=== PATIENT | male | born 1945 | race Caucasian/White ===

== ENCOUNTER → 2017-10-03 | Outpatient (REF) | payer BC | LOC: M LAB REF 17:14 | DX: L02.33 Carbuncle of buttock (principal) | CPT/HCPCS: 87186 ==

== ENCOUNTER → 2018-01-14 | Outpatient (REF) | payer BC | LOC: M WUC 12:15 | DX: L02.212 Cutaneous abscess of back [any part, except buttock and flank] (principal) ==

== ENCOUNTER 2021-05-11 10:15 | Emergency (ER) | payer BC, MEDICARE ==
[~2021-05-11] VITALS: Ht 172.7 cm; Wt 68.5 kg
[2021-05-11] MEDS: METOPROLOL 5 MG/5 ML VIAL IV SCH ×3 (10:40→11:07)
[2021-05-11 11:00] LABS: BASO % 0.4 % (0.0-1.0); EOS % 0.1 % (0.0-3.0); HEMATOCRIT 38.2 % (42.0-52.0); HEMOGLOBIN 12.7 g/dl (13.5-17.5); LYMPH % 13.5 % (24.0-44.0); MEAN CORPUSCULAR HGB CONC 33.2 g/dl (32.0-36.5); MEAN CORPUSCULAR VOLUME 96.2 fl (80.0-96.0); MONO # 0.6 10^3/uL (0.0-0.8); NEUTROPHILS # 5.8 10^3/uL (1.5-8.5); NEUTROPHILS % 77.6 % (36.0-66.0); PLATELET COUNT, AUTOMATED 246 10^3/uL (150-450); RED BLOOD COUNT 3.97 10^6/uL (4.30-6.10); WHITE BLOOD COUNT 7.5 10^3/uL (4.0-10.0)
[2021-05-11 11:07] VITALS: BP 110/77
[2021-05-11 11:10] LABS: INR 1.03; PROTHROMBIN TIME 13.9 SECONDS (12.7-14.5)
[2021-05-11 11:11] LABS: PARTIAL THROMBOPLASTIN TIME 27.2 SECONDS (25.9-37.0)
[2021-05-11] MEDS ORDERED: METOPROLOL TART 25 MG TABLET PO STA (11:11)
[2021-05-11 11:36] LABS: ALBUMIN 3.5 GM/DL (3.2-5.2); ALT/SGPT 97 U/L (12-78); BILIRUBIN,DIRECT 0.2 MG/DL (0.0-0.2); BILIRUBIN,TOTAL 0.6 MG/DL (0.2-1.0); BLOOD UREA NITROGEN 38 MG/DL (7-18); CALCIUM LEVEL 9.7 MG/DL (8.8-10.2); CARBON DIOXIDE LEVEL 23 MEQ/L (21-32); CHLORIDE LEVEL 112 MEQ/L (98-107); GLOMERULAR FILTRATION RATE > 60.0 (>42); GLUCOSE, FASTING 101 MG/DL (70-100); LIPASE 54 U/L (73-393); NT-PRO BNP 5683 PG/ML (<450); POTASSIUM SERUM 4.5 MEQ/L (3.5-5.1); SODIUM LEVEL 146 MEQ/L (136-145); TOTAL PROTEIN 6.4 GM/DL (6.4-8.2)
[2021-05-11 11:42] LABS: CK-MB VALUE MASS 11.8 NG/ML (<3.6); MB/CK RELATIVE INDEX 3.52 (< OR =4)
[2021-05-11 12:56] LABS: CK-MB VALUE MASS 10.8 NG/ML (<3.6); MB/CK RELATIVE INDEX 3.75 (< OR =4)
[2021-05-11 13:30] VITALS: BP 118/81
[2021-05-11] MEDS ORDERED: CORE6.25 PO (13:59)
[2021-05-11] MEDS ORDERED: ELIQ5TAB PO (13:59)
== END 2021-05-11 15:09 | disposition home or self-care (01) ==
LOC: M ED 10:15
DX: I48.91 Unspecified atrial fibrillation (principal); R77.8 Other specified abnormalities of plasma proteins; I44.7 Left bundle-branch block, unspecified; Z79.01 Long term (current) use of anticoagulants

== ENCOUNTER 2021-05-13 13:15 | Inpatient (IN) | payer BC, MEDICARE ==
[~2021-05-13] VITALS: Ht 167.6 cm; Wt 69.2 kg
[~2021-05-13 13:15] MED LIST: CORE6.25 PO; ELIQ5TAB PO
[2021-05-13] MEDS ORDERED: FUROSEMIDE 20MG/2ML VIAL (J1940) IV ONE (13:55)
[2021-05-13 14:18] LABS: BASO % 0.4 % (0.0-1.0); EOS # 0.1 10^3/uL (0.0-0.5); HEMATOCRIT 38.9 % (42.0-52.0); HEMOGLOBIN 12.7 g/dl (13.5-17.5); LYMPH # 1.2 10^3/uL (1.5-5.0); LYMPH % 16.5 % (24.0-44.0); MEAN CORPUSCULAR HEMOGLOBIN 32.1 pg (27.0-33.0); MEAN CORPUSCULAR HGB CONC 32.6 g/dl (32.0-36.5); MEAN CORPUSCULAR VOLUME 98.2 fl (80.0-96.0); MONO # 0.6 10^3/uL (0.0-0.8); MONO % 8.6 % (2.0-8.0); NEUTROPHILS # 5.2 10^3/uL (1.5-8.5); NEUTROPHILS % 73.2 % (36.0-66.0); PLATELET COUNT, AUTOMATED 279 10^3/uL (150-450); RED BLOOD COUNT 3.96 10^6/uL (4.30-6.10); WHITE BLOOD COUNT 7.1 10^3/uL (4.0-10.0)
[2021-05-13 14:28] LABS: INR 1.23; PROTHROMBIN TIME 15.9 SECONDS (12.7-14.5)
[2021-05-13 14:29] LABS: PARTIAL THROMBOPLASTIN TIME 34.8 SECONDS (25.9-37.0)
[2021-05-13 14:49] LABS: MB/CK RELATIVE INDEX 5.75 (< OR =4)
[2021-05-13 14:57] LABS: RSV AMPLIFICATION NEGATIVE (NEGATIVE)
[2021-05-13 14:57] LABS: ALBUMIN 3.3 GM/DL (3.2-5.2); BILIRUBIN,DIRECT 0.1 MG/DL (0.0-0.2); BILIRUBIN,TOTAL 0.4 MG/DL (0.2-1.0); CALCIUM LEVEL 9.3 MG/DL (8.8-10.2); CREATININE FOR GFR 1.39 MG/DL (0.70-1.30); GLOMERULAR FILTRATION RATE 52.7 (>42); POTASSIUM SERUM 4.5 MEQ/L (3.5-5.1); THYROID STIMULATING HORMONE 39.5 uIU/ML (0.358-3.740); TOTAL PROTEIN 6.2 GM/DL (6.4-8.2)
[2021-05-13 16:09] LABS: CK-MB VALUE MASS 37.1 NG/ML (<3.6); MB/CK RELATIVE INDEX 5.89 (< OR =4)
[2021-05-13] MEDS ORDERED: VITA-158 PO (16:11)
[2021-05-13] MEDS ORDERED: CYAN100049 PO (16:11)
[2021-05-13] MEDS ORDERED: D31000TA2 PO (16:11)
[2021-05-13] MEDS ORDERED: HOME MED LIST COMPLETE! XX SCH (16:15)
[2021-05-13] MEDS: CARVedilol 12.5 MG TAB PO SCH (18:48)
[2021-05-13] MEDS: APIXABAN 5 MG TAB (ELIQUIS) PO SCH (21:32)
[2021-05-14] MEDS: LEVOTHYROXINE 25MCG TABLET (0.025MG) PO SCH (06:00)
[2021-05-14 07:27] LABS: BASO % 0.7 % (0.0-1.0); EOS # 0.1 10^3/uL (0.0-0.5); EOS % 2.1 % (0.0-3.0); HEMOGLOBIN 12.7 g/dl (13.5-17.5); LYMPH # 1.2 10^3/uL (1.5-5.0); LYMPH % 20.8 % (24.0-44.0); MEAN CORPUSCULAR HEMOGLOBIN 32.2 pg (27.0-33.0); MEAN CORPUSCULAR HGB CONC 32.6 g/dl (32.0-36.5); MONO # 0.5 10^3/uL (0.0-0.8); MONO % 9.5 % (2.0-8.0); NEUTROPHILS # 3.7 10^3/uL (1.5-8.5); NEUTROPHILS % 66.5 % (36.0-66.0); PLATELET COUNT, AUTOMATED 258 10^3/uL (150-450); RED BLOOD COUNT 3.94 10^6/uL (4.30-6.10); WHITE BLOOD COUNT 5.6 10^3/uL (4.0-10.0)
[2021-05-14 08:01] LABS: BLOOD UREA NITROGEN 48 MG/DL (7-18); CALCIUM LEVEL 8.9 MG/DL (8.8-10.2); CARBON DIOXIDE LEVEL 26 MEQ/L (21-32); CHLORIDE LEVEL 113 MEQ/L (98-107); FREE T3 1.7 PG/ML (2.2-4.0); FREE T4 0.95 NG/DL (0.76-1.46); GLOMERULAR FILTRATION RATE > 60.0 (>42); GLUCOSE, FASTING 84 MG/DL (70-100); MAGNESIUM LEVEL 2.2 MG/DL (1.8-2.4); POTASSIUM SERUM 4.3 MEQ/L (3.5-5.1); SODIUM LEVEL 147 MEQ/L (136-145)
[2021-05-14] MEDS: CARVedilol 12.5 MG TAB PO SCH ×2 (08:45→20:25)
[2021-05-14] MEDS: CYANOCOBALAMIN 500 MCG TAB PO SCH (08:45)
[2021-05-14] MEDS: VITAMIN D 1,000 INTERNATIONAL UNITS TABLET PO SCH (08:45)
[2021-05-14] MEDS: ASCORBIC ACID 500 MG TAB PO SCH (08:45)
[2021-05-14] MEDS: APIXABAN 5 MG TAB (ELIQUIS) PO SCH ×2 (08:45→20:25)
[2021-05-14] MEDS ORDERED: FUROSEMIDE 40MG/4ML VIAL (J1940) IV SCH (09:00)
[2021-05-14 13:04] VITALS: BP 110/70
[2021-05-14] MEDS: FUROSEMIDE 20MG/2ML VIAL (J1940) IV SCH (17:58)
[2021-05-14 17:59] VITALS: BP 123/78
[2021-05-14] MEDS ORDERED: SENNA 8.6 MG TAB (SENOKOT) PO PRN (19:30)
[2021-05-14] MEDS ORDERED: MIRALAX *UNIT DOSE* 17GM PACKET PO PRN (19:30)
[2021-05-14] MEDS ORDERED: MOM 30ML SUSPENSION UDC PO PRN (19:30)
[2021-05-14 20:00] VITALS: BP 110/74
[2021-05-14 20:25] VITALS: BP 112/74
[2021-05-14] MEDS: ENTRESTO 24-26MG TABLET (SACUBITRIL/VALSARTAN) PO SCH (20:25)
[2021-05-15] VITALS: BP 100/67
[2021-05-15 04:00] VITALS: BP 106/59
[2021-05-15] MEDS: LEVOTHYROXINE 25MCG TABLET (0.025MG) PO SCH (05:08)
[2021-05-15 06:11] LABS: BASO # 0.1 10^3/uL (0.0-0.2); BASO % 0.9 % (0.0-1.0); EOS # 0.1 10^3/uL (0.0-0.5); EOS % 2.4 % (0.0-3.0); HEMATOCRIT 42.4 % (42.0-52.0); HEMOGLOBIN 13.7 g/dl (13.5-17.5); LYMPH # 1.4 10^3/uL (1.5-5.0); LYMPH % 23.9 % (24.0-44.0); MEAN CORPUSCULAR HEMOGLOBIN 32.1 pg (27.0-33.0); MEAN CORPUSCULAR HGB CONC 32.3 g/dl (32.0-36.5); MEAN CORPUSCULAR VOLUME 99.3 fl (80.0-96.0); MONO # 0.6 10^3/uL (0.0-0.8); MONO % 9.6 % (2.0-8.0); NEUTROPHILS # 3.6 10^3/uL (1.5-8.5); NEUTROPHILS % 62.9 % (36.0-66.0); PLATELET COUNT, AUTOMATED 295 10^3/uL (150-450); RED BLOOD COUNT 4.27 10^6/uL (4.30-6.10); WHITE BLOOD COUNT 5.7 10^3/uL (4.0-10.0)
[2021-05-15 06:31] LABS: BLOOD UREA NITROGEN 43 MG/DL (7-18); CALCIUM LEVEL 8.5 MG/DL (8.8-10.2); CARBON DIOXIDE LEVEL 27 MEQ/L (21-32); CHLORIDE LEVEL 111 MEQ/L (98-107); CREATININE FOR GFR 1.05 MG/DL (0.70-1.30); GLOMERULAR FILTRATION RATE > 60.0 (>42); GLUCOSE, FASTING 92 MG/DL (70-100); MAGNESIUM LEVEL 2.1 MG/DL (1.8-2.4); SODIUM LEVEL 145 MEQ/L (136-145)
[2021-05-15 07:32] VITALS: BP 105/69
[2021-05-15] MEDS ORDERED: ENTR1TAB PO (07:46)
[2021-05-15] MEDS: ASCORBIC ACID 500 MG TAB PO SCH (08:14)
[2021-05-15] MEDS: VITAMIN D 1,000 INTERNATIONAL UNITS TABLET PO SCH (08:14)
[2021-05-15] MEDS: CYANOCOBALAMIN 500 MCG TAB PO SCH (08:14)
[2021-05-15] MEDS: APIXABAN 5 MG TAB (ELIQUIS) PO SCH (08:14)
[2021-05-15] MEDS: ENTRESTO 24-26MG TABLET (SACUBITRIL/VALSARTAN) PO SCH (08:14)
[2021-05-15] MEDS: FUROSEMIDE 20MG/2ML VIAL (J1940) IV SCH (08:15)
[2021-05-15] MEDS: CARVedilol 12.5 MG TAB PO SCH (08:15)
[2021-05-15] MEDS ORDERED: SPIRONOLACTONE 12.5MG PER 1/2 TABLET PO SCH (09:00)
[2021-05-15 12:30] VITALS: BP 98/65
[2021-05-15] MEDS ORDERED: LASI20TA3 PO (15:01)
[2021-05-15] MEDS ORDERED: ALDA25TA2 PO (15:01)
[2021-05-15] MEDS ORDERED: CARV12.5 PO (15:01)
[2021-05-15] MEDS ORDERED: LEVO25TA5 PO (15:59)
== END 2021-05-15 16:20 | disposition home or self-care (01) | DRG 292 ==
LOC: M ED 13:15 → M ED INP 16:53 → ENRESERV 05-14 11:46 → M PCU 05-14 13:04
PROVIDERS: ADMIT Internal Medicine Nephrology; ATTEND Internal Medicine Nephrology
DX: I50.41 Acute combined systolic (congestive) and diastolic (congestive) heart failure (principal); N17.9 Acute kidney failure, unspecified; J90 Pleural effusion, not elsewhere classified; I48.91 Unspecified atrial fibrillation; Z79.01 Long term (current) use of anticoagulants; Z20.822 Contact with and (suspected) exposure to COVID-19; Z79.899 Other long term (current) drug therapy; I27.20 Pulmonary hypertension, unspecified; I50.810 Right heart failure, unspecified; E03.9 Hypothyroidism, unspecified

== ENCOUNTER → 2021-09-14 | Outpatient (REF) | payer MEDICARE ==
[~2021-09-14] MED LIST changes: +ALDA25TA2 PO; +CARV12.5 PO; +CYAN100049 PO; +ENTR1TAB PO; +LASI20TA3 PO; +LEVO25TA5 PO; +VITA-158 PO; +VITA100093 PO
[2021-09-14 16:33] LABS: HEMATOCRIT 38.1 % (42.0-52.0); HEMOGLOBIN 12.7 g/dl (13.5-17.5); MEAN CORPUSCULAR HEMOGLOBIN 33.8 pg (27.0-33.0); MEAN CORPUSCULAR HGB CONC 33.3 g/dl (32.0-36.5); MEAN CORPUSCULAR VOLUME 101.3 fl (80.0-96.0); PLATELET COUNT, AUTOMATED 215 10^3/uL (150-450); RED BLOOD COUNT 3.76 10^6/uL (4.30-6.10); WHITE BLOOD COUNT 6.1 10^3/uL (4.0-10.0)
[2021-09-14 17:04] LABS: ALBUMIN 3.7 GM/DL (3.2-5.2); ALT/SGPT 56 U/L (12-78); BLOOD UREA NITROGEN 44 MG/DL (7-18); CALCIUM LEVEL 8.7 MG/DL (8.8-10.2); CARBON DIOXIDE LEVEL 31 MEQ/L (21-32); CHLORIDE LEVEL 104 MEQ/L (98-107); CHOLESTEROL LEVEL 161 MG/DL (<200); FOLATE > 24.0 NG/ML (>5.4); FREE T4 1.02 NG/DL (0.76-1.46); GLOMERULAR FILTRATION RATE 56.8 (>42); GLUCOSE, FASTING 70 MG/DL (70-100); HDL CHOLESTEROL 70 MG/DL (>40); LDL CHOLESTEROL 72 MG/DL (<100); MAGNESIUM LEVEL 2.7 MG/DL (1.8-2.4); NON-HDL-C 91 MG/DL; NT-PRO BNP 3449 PG/ML (<450); POTASSIUM SERUM 4.5 MEQ/L (3.5-5.1); SODIUM LEVEL 141 MEQ/L (136-145); TOTAL PROTEIN 6.3 GM/DL (6.4-8.2); TRIGLYCERIDES LEVEL 93 MG/DL (<150)
[2021-09-14 17:17] LABS: VITAMIN B12 LEVEL 816 PG/ML (247-911)
== END ==
LOC: M SFHCADAM 11:48
PROVIDERS: ATTEND Family Medicine
DX: I50.20 Unspecified systolic (congestive) heart failure (principal); I48.21 Permanent atrial fibrillation; E03.9 Hypothyroidism, unspecified; Z12.5 Encounter for screening for malignant neoplasm of prostate

== ENCOUNTER → 2021-11-22 | Outpatient (REF) | payer MEDICARE, BC ==
[2021-11-22 17:33] LABS: FREE T4 1.14 NG/DL (0.76-1.46); THYROID STIMULATING HORMONE 7.85 uIU/ML (0.358-3.740)
== END ==
LOC: M SFHCADAM 13:07
PROVIDERS: ATTEND Family Medicine
DX: E03.9 Hypothyroidism, unspecified (principal)

== ENCOUNTER → 2022-05-16 | Outpatient (REF) | payer BC ==
[2022-05-16 14:56] LABS: HEMATOCRIT 37.9 % (42.0-52.0); HEMOGLOBIN 12.5 g/dl (13.5-17.5); MEAN CORPUSCULAR HEMOGLOBIN 33.2 pg (27.0-33.0); MEAN CORPUSCULAR VOLUME 100.5 fl (80.0-96.0); PLATELET COUNT, AUTOMATED 290 10^3/uL (150-450); RED BLOOD COUNT 3.77 10^6/uL (4.30-6.10); WHITE BLOOD COUNT 6.8 10^3/uL (4.0-10.0)
[2022-05-16 15:40] LABS: IRON (FE) 75 UG/DL (65-175); PERCENT SATURATION 22.1 % (19.7-50.0); TOTAL IRON BINDING CAPACITY 340 UG/DL (250-425)
[2022-05-16 16:01] LABS: ALBUMIN 3.7 G/DL (3.2-5.2); ALKALINE PHOSPHATASE 74 U/L (46-116); ALT/SGPT 38 U/L (7.0-40); AST/SGOT 36 U/L (<34); BILIRUBIN,TOTAL 0.5 MG/DL (0.3-1.2); BLOOD UREA NITROGEN 35 MG/DL (9-23); CALCIUM LEVEL 9.3 MG/DL (8.3-10.6); CARBON DIOXIDE LEVEL 31 MMOL/L (20-31); CHLORIDE LEVEL 104 MMOL/L (98-107); CREATININE FOR GFR 1.16 MG/DL (0.70-1.30); FERRITIN 129.4 NG/ML (10.5-307.3); FREE T4 1.29 NG/DL (0.89-1.76); GLOMERULAR FILTRATION RATE > 60.0 (>42); GLUCOSE, FASTING 60 MG/DL (74-106); POTASSIUM SERUM 4.5 MMOL/L (3.5-5.1); SODIUM LEVEL 143 MMOL/L (136-145); THYROID STIMULATING HORMONE 13.331 uIU/ML (0.55-4.78)
[2022-05-16 21:33] LABS: TOTAL PROTEIN 8.3 G/DL (5.7-8.2)
== END ==
LOC: M SFHCADAM 11:53
PROVIDERS: ATTEND Family Medicine
DX: D64.9 Anemia, unspecified (principal); E03.9 Hypothyroidism, unspecified; I50.20 Unspecified systolic (congestive) heart failure

== ENCOUNTER → 2022-07-05 | Outpatient (CLI) | payer MEDICARE, BC | LOC: M PLAIMG 10:31 | PROVIDERS: ATTEND Family Medicine | DX: S06.5X0A Traumatic subdural hemorrhage without loss of consciousness, initial encounter (principal); Y93.9 Activity, unspecified; Y92.9 Unspecified place or not applicable ==

== ENCOUNTER → 2022-07-11 | Outpatient (REF) | payer BC ==
[2022-07-11 17:24] LABS: HEMOGLOBIN 12.5 g/dl (13.5-17.5); MEAN CORPUSCULAR HEMOGLOBIN 32.8 pg (27.0-33.0); MEAN CORPUSCULAR HGB CONC 32.1 g/dl (32.0-36.5); MEAN CORPUSCULAR VOLUME 102.4 fl (80.0-96.0); PLATELET COUNT, AUTOMATED 277 10^3/uL (150-450); RED BLOOD COUNT 3.81 10^6/uL (4.30-6.10); WHITE BLOOD COUNT 7.1 10^3/uL (4.0-10.0)
[2022-07-11 17:55] LABS: BLOOD UREA NITROGEN 32 MG/DL (9-23); CALCIUM LEVEL 9.4 MG/DL (8.3-10.6); CARBON DIOXIDE LEVEL 27 MMOL/L (20-31); CHLORIDE LEVEL 107 MMOL/L (98-107); CREATININE FOR GFR 1.17 MG/DL (0.70-1.30); GLOMERULAR FILTRATION RATE > 60.0 (>42); GLUCOSE, FASTING 63 MG/DL (74-106); POTASSIUM SERUM 5.2 MMOL/L (3.5-5.1); SODIUM LEVEL 142 MMOL/L (136-145); THYROID STIMULATING HORMONE 1.255 uIU/ML (0.55-4.78)
== END ==
LOC: M SFHCADAM 14:23
PROVIDERS: ATTEND Family Medicine
DX: E03.9 Hypothyroidism, unspecified (principal); S06.5X0A Traumatic subdural hemorrhage without loss of consciousness, initial encounter; I50.20 Unspecified systolic (congestive) heart failure

== ENCOUNTER → 2022-08-23 | Outpatient (REF) | payer MEDICARE, BC ==
[2022-08-23 18:55] LABS: SOURCE, BODY FLUID OTHER; SYNOVIAL FLUID COLOR RED (COLORLESS)
[2022-08-23 18:59] LABS: CRYSTALS, BODY FLUID NONE SEEN (NONE SEEN); SOURCE, BODY FLUID CRYSTALS OTHER
[2022-08-23 19:33] LABS: SOURCE, BODY FLUID GLUCOSE OTHER
== END ==
LOC: M LAB REF 16:59
PROVIDERS: ATTEND Physician Assistant Surgical
DX: M70.22 Olecranon bursitis, left elbow (principal)

== ENCOUNTER → 2023-03-19 | Outpatient (REF) | payer MEDICARE, BC ==
[2023-03-19 15:12] LABS: HEMATOCRIT 40.8 % (42.0-52.0); HEMOGLOBIN 13.5 g/dl (13.5-17.5); MEAN CORPUSCULAR HEMOGLOBIN 32.2 pg (27.0-33.0); MEAN CORPUSCULAR HGB CONC 33.1 g/dl (32.0-36.5); MEAN CORPUSCULAR VOLUME 97.4 fl (80.0-96.0); PLATELET COUNT, AUTOMATED 248 10^3/uL (150-450); RED BLOOD COUNT 4.19 10^6/uL (4.30-6.10); WHITE BLOOD COUNT 7.6 10^3/uL (4.0-10.0)
[2023-03-19 15:36] LABS: ALBUMIN 3.9 G/DL (3.2-5.2); ALKALINE PHOSPHATASE 70 U/L (46-116); ALT/SGPT 18 U/L (7.0-40); AST/SGOT 21 U/L (<34); BILIRUBIN,TOTAL 0.7 MG/DL (0.3-1.2); BLOOD UREA NITROGEN 47 MG/DL (9-23); CALCIUM LEVEL 9.7 MG/DL (8.3-10.6); CARBON DIOXIDE LEVEL 30 MMOL/L (20-31); CHLORIDE LEVEL 105 MMOL/L (98-107); CHOLESTEROL LEVEL 176 MG/DL (<200); CREATININE FOR GFR 1.11 MG/DL (0.70-1.30); GLOMERULAR FILTRATION RATE > 60.0 (>42); GLUCOSE, FASTING 82 MG/DL (74-106); HDL CHOLESTEROL 62.8 MG/DL (>40); LDL CHOLESTEROL 97.4 MG/DL (<100); NON-HDL-C 113.2 MG/DL; POTASSIUM SERUM 4.2 MMOL/L (3.5-5.1); SODIUM LEVEL 139 MMOL/L (136-145); TOTAL PROTEIN 6.6 G/DL (5.7-8.2); TRIGLYCERIDES LEVEL 79 MG/DL (<150)
[2023-03-19 15:37] LABS: THYROID STIMULATING HORMONE 0.039 uIU/ML (0.55-4.78)
[2023-03-19 15:38] LABS: FREE T4 1.57 NG/DL (0.89-1.76)
== END ==
LOC: M SFHCADAM 13:29
PROVIDERS: ATTEND Family Medicine
DX: I50.20 Unspecified systolic (congestive) heart failure (principal); E03.9 Hypothyroidism, unspecified

== ENCOUNTER → 2023-09-03 | Outpatient (REF) | payer BC ==
[2023-09-03 17:56] LABS: HEMATOCRIT 41.2 % (42.0-52.0); HEMOGLOBIN 13.3 g/dl (13.5-17.5); MEAN CORPUSCULAR HEMOGLOBIN 31.9 pg (27.0-33.0); MEAN CORPUSCULAR HGB CONC 32.3 g/dl (32.0-36.5); MEAN CORPUSCULAR VOLUME 98.8 fl (80.0-96.0); PLATELET COUNT, AUTOMATED 256 10^3/uL (150-450); RED BLOOD COUNT 4.17 10^6/uL (4.30-6.10); WHITE BLOOD COUNT 6.4 10^3/uL (4.0-10.0)
[2023-09-03 18:04] LABS: ALBUMIN 3.8 G/DL (3.2-5.2); ALKALINE PHOSPHATASE 75 U/L (46-116); ALT/SGPT 23 U/L (7.0-40); AST/SGOT 22 U/L (<34); BILIRUBIN,TOTAL 0.6 MG/DL (0.3-1.2); BLOOD UREA NITROGEN 38 MG/DL (9-23); CALCIUM LEVEL 9.5 MG/DL (8.3-10.6); CARBON DIOXIDE LEVEL 32 MMOL/L (20-31); CHLORIDE LEVEL 105 MMOL/L (98-107); CHOLESTEROL LEVEL 179 MG/DL (<200); CREATININE FOR GFR 1.02 MG/DL (0.70-1.30); GLOMERULAR FILTRATION RATE > 60.0 (>35); GLUCOSE, FASTING 77 MG/DL (74-106); HDL CHOLESTEROL 71.4 MG/DL (>40); NON-HDL-C 107.6 MG/DL; POTASSIUM SERUM 4.4 MMOL/L (3.5-5.1); SODIUM LEVEL 144 MMOL/L (136-145); TOTAL PROTEIN 6.7 G/DL (5.7-8.2); TRIGLYCERIDES LEVEL 88 MG/DL (<150)
[2023-09-03 18:05] LABS: THYROID STIMULATING HORMONE 1.785 uIU/ML (0.55-4.78)
[2023-09-03 18:06] LABS: FREE T4 1.16 NG/DL (0.89-1.76)
== END ==
LOC: M SFHCADAM 13:55
PROVIDERS: ATTEND Family Medicine
DX: E03.9 Hypothyroidism, unspecified (principal); I50.20 Unspecified systolic (congestive) heart failure; S06.5X0A Traumatic subdural hemorrhage without loss of consciousness, initial encounter; Y92.9 Unspecified place or not applicable; Y93.9 Activity, unspecified

== ENCOUNTER → 2024-01-23 | Outpatient (REF) | payer MEDICARE, BC | LOC: M SFHCDERM 13:30 | PROVIDERS: ATTEND Nurse Practitioner Family | DX: D48.5 Neoplasm of uncertain behavior of skin (principal) ==

== ENCOUNTER → 2024-08-05 | Outpatient (CLI) | payer MEDICARE, BC | LOC: M PLAIMG 12:48 | PROVIDERS: ATTEND Family Medicine | DX: D32.0 Benign neoplasm of cerebral meninges (principal) ==